=== PATIENT | male | born 1980 | race Caucasian/White ===

== ENCOUNTER 2017-05-15 13:44 | Emergency (ER) | payer OTHER ==
[~2017-05-15] VITALS: Ht 175.3 cm; Wt 153.0 kg
[~2017-05-15 13:44] MED LIST: IBUP-1050 PO
[2017-05-15 13:46] VITALS: TEMP 37.1; Ht 175.3 cm; Wt 153.0 kg
[2017-05-15 14:21] VITALS: BP 155/100; PULSE 91; O2SAT 96
--- NOTE | 2017-05-15 17:34 | EMERGENCY ROOM VISIT NOTE ---
History Report prepared by Kiki: Zara Andrade Under the Supervision of: Dr. Sky Hanley M.D. First contact with patient: 13:51 Chief Complaint: FLU LIKE SX Stated Complaint: FLU LIKE History of Present Illness The patient is a 36 year old male who presents to the Emergency Room with complaints of constant flu like symptoms beginning on Thursday, two days ago. The patient reports congestion, decreased appetite, myalgias, a productive cough , and headache beginning two days ago. He also notes a temperature of 100.7. He denies any chest pain. He reports taking ibuprofen and DayQuil with some relief. The patient did not get a flu shot this year. Source of History: patient Onset: two days ago Position: other (generalized) Quality: other (flu like symptoms) Timing: constant Associated Symptoms: + fevers, + headache, + cough, + abdominal pain, No chest pain Review of Systems See HPI for pertinent positives & negatives. A total of 10 systems reviewed and were otherwise negative. Past Medical & Surgical Medical Problems: (1) GERD (gastroesophageal reflux disease) Family History FHx: diabetes FHx: gallbladder disease FHx: heart disease Social History Alcohol Use: none Marital Status: Housing Status: lives with family Occupation Status: employed Current/Historical Medications No Active Prescriptions or Reported Meds Allergies Coded Allergies: Shellfish (Verified Allergy, Unknown, ANAPHYLAXIS, 05/15/17) Uncoded Allergies: BANANAS (Allergy, Unknown, ANAPHYLAXIS, 05/15/17) Physical Exam Vital Signs Date Time Temp Pulse Resp B/P (MAP) Pulse Ox O2 Delivery O2 Flow Rate FiO2 05/15/17 14:21 91 20 155/100 96 05/15/17 13:46 37.1 91 20 162/105 96 Room Air Physical Exam Constitutional: Vital signs reviewed. Eyes: Pupils are equal round reactive to light. Conjunctiva are noninjected. ENT: Pharynx is clear without erythema or exudate. Mucous membranes are moist. Neck supple without meningeal signs. Respiratory: Clear to auscultation bilaterally. Breath sounds are equal bilaterally. Cardiovascular: Regular rate and rhythm. No rubs or gallops. GI: Soft, nondistended and nontender. Bowel sounds are present. Musculoskeletal: No peripheral edema. Integumentary: No cyanosis. Neurological: The patient is awake and alert. No focal deficits. Psychiatric: Normal affect. Medical Decision & Procedures ED Course 1353: The patient was evaluated in room A3. A complete history and physical exam was performed. 1404: Upon reevaluation, the patient appeared to have improvement of his symptoms. I discussed denisse's findings with him. He verbalized agreement of the treatment plan. The patient was discharged home. Medical Decision This is a 36-year-old male who presents with flulike symptoms. Differential diagnosis includes influenza, viral syndrome, bronchitis, pneumonia. I did perform a limited focused review of portions of the patient's old chart on the electronic medical record. The patient has had no recent pertinent visits to this hospital. I did evaluate the patient as noted above. He is presenting with flulike symptoms. He has not had his flu shot today. We have seen multiple patients with influenza very frequently here in the emergency department at this time. I did offer to perform influenza testing but he declined. He stated that mostly he was concerned because he needed a work note. He does not feel any testing was indicated. I did not have any objection to this. I did recommend he follow with his doctor. He was discharged in good condition. Medication Reconcilliation Current Medication List: was personally reviewed by me Blood Pressure Screening Patient's blood pressure: Elevated blood pressure Blood pressure disposition: Referred to PCP Impression Primary Impression: Influenza Scribe Attestation The scribe's documentation has been prepared under my direct and personally reviewed by me in its entirety. I confirm that the note above accurately reflects all work, treatment, procedures, and medical decision making performed by me. Departure Information Dispostion Home / Self-Care Prescriptions No Active Prescriptions or Reported Meds Referrals No Doctor, Assigned (PCP) Forms HOME CARE DOCUMENTATION FORM, IMPORTANT VISIT INFORMATION Patient Instructions ED Flu, My [facility] Additional Instructions You have been examined and treated today on an emergency basis only. This is not a substitute for, or an effort to provide, complete comprehensive medical care. It is impossible to recognize and treat all injuries or illnesses in a single emergency department visit. It is therefore important that you follow up closely with your physician. Call as soon as possible for an appointment. Return for worsening symptoms or if you develop chest pain, difficulty breathing , vomiting, or any other concerning symptoms.
== END 2017-05-15 14:22 | disposition home or self-care (01) ==
LOC: C.EDB 13:46 → C.EDA 14:22
DX: J11.1 Influenza due to unidentified influenza virus with other respiratory manifestations (principal); K21.9 Gastro-esophageal reflux disease without esophagitis; Z91.018 Allergy to other foods; Z83.3 Family history of diabetes mellitus; Z83.79 Family history of other diseases of the digestive system; Z82.49 Family history of ischemic heart disease and other diseases of the circulatory system